=== PATIENT | male | born 1975 | race Caucasian/White ===

== ENCOUNTER 2020-12-18 05:07 | Emergency (ER) | payer MEDICAID ==
[~2020-12-18] VITALS: Ht 170.2 cm; Wt 74.4 kg
[2020-12-18] MEDS ORDERED: TYLENOL EXTRA500 MG ORAL (05:24)
[2020-12-18] MEDS ORDERED: MEDIPLAST CORN1 EACH TP (05:24)
--- NOTE | 2020-12-18 05:24 | Emergency Room Report ---
History of Present Illness General Chief Complaint: Lower Extremity Injury Source: Patient Present Illness HPI 45-year-old male with past medical history of chronic foot calluses presents emergency department with chronic foot pain. When asked how long his pain has been ongoing, he states "a long time". He denies any fever, calf swelling, shortness of breath, chest pain, hemoptysis, rash, nausea, vomiting, diarrhea or any other symptoms. Tetanus status is up-to-date. The patient's symptoms were gradual onset, severity was moderate, duration since a chronic number of years. Quality: Aching Past medical history: Hepatitis C, childhood hernia surgery Past surgical history: Right inguinal hernia Smoking: Occasional Alcohol use: Occasional Drug use: Denies Review of systems: CONST: No fevers or chills, No night sweats PULMONARY: No productive cough, No shortness of breath CARDIAC: No chest pain, No palpitations GI: No vomiting, No diarrhea , No melena_or_BRBPR : No dysuria, No hematuria, No discharge NEURO: No new_focal_weakness_or_numbness, No confusion, No vision changes 14 point Review of Systems is otherwise negative except per HPI Physical Exam: GENERAL: Awake_alert_ nontoxic, no acute distress Spo2 98% on RA -normal EYES: Extraocular muscles are intact. Conjunctivae clear. Lids without swelling ENT: External nose and ear normal_in_appearance. Oropharynx clear. Head_atraumatic, Moist_oral_mucosa NECK: No JVD. No meningismus. No thyromegaly. Supple. Trachea midline RESP: Normal respiratory effort. Symmetric rise. No stridor. Clear_to_auscultation_No_rales_No_wheezes CARDIAC: Regular rate and regular rhytm. No_significant pedal edema. Negative Homans' sign bilaterally ABDOMEN: Soft. Nondistended. Nontender_No_rebound_or_guarding. MSK: Normal muscle tone, without rigidity. Extremities without asymmetric deformity or swelling. Chronically callused plantar feet bilaterally. No ulceration. No cellulitis. Bunions bilaterally Full range of motion of bilateral ankles. No pain out of proportion. Joints have no warmth out of proportion. SKIN: Warm and dry. No visible cyanosis or pallor. No petechiae NEUROLOGIC: Alert, oriented x3. Motor_and_sensation_grossly_intact. No truncal ataxia. Gait_normal Psych: Normal mood and affect, normal judgment and insight - COORDINATION OF CARE Case was discussed with: Patient Medical Decision Making/Plan: Differential diagnosis: Chronic foot pain versus bunion versus callus versus plantar ulceration Patient is afebrile and well-appearing. He is able to bear weight on his plantar feet. He is noted to have noninfective chronic appearing calluses to the bilateral plantar feet. There is no swelling or redness. Negative Homans' sign bilaterally. These are likely chronic. Doubt cellulitis, abscess, necrotizing fasciitis, septic arthritis, gout or compartment syndrome. We have supplied lotion, emollient, and new socks. He was advised to wear proper footwear. He will see his primary care doctor for referral to podiatry. A [facility] consult was offered to the patient prior to discharge but the patient declined. All needs were met during this ED visit including food and water, change of clothes, detention referral/resources, and transportation. Pertinent results reviewed with the patient. I educated the patient on the current treatment plan including the risks, benefits, and alternatives. I also discussed the extent and limitations of the current evaluation. The patient expressed understanding and agreement with plan. I recommended PMD follow-up within 1-2 days. Also advised that the patient return to the Emergency Department as soon as possible if they experience any new, persistent, or worsening symptoms. Allergies: Coded Allergies: No Known Allergies (Unverified , 12/18/20) COVID-19 Screening Contact w/high risk pt: No Experienced COVID-19 symptoms?: No COVID-19 Testing performed RESEARCH INTERVIEWER: No Physical Exam Vital Signs Date Time Temp Pulse Resp B/P (MAP) Pulse Ox O2 Delivery O2 Flow Rate FiO2 12/18/20 05:13 97.7 94 16 118/76 (90) 100 Room Air Medical Decision Making Diagnostic Impression: Primary Impression: Callus of foot Last Vital Signs Date Time Temp Pulse Resp B/P (MAP) Pulse Ox O2 Delivery O2 Flow Rate FiO2 12/18/20 05:13 97.7 94 16 118/76 (90) 100 Room Air Disposition: HOME, SELF-CARE Admit Decision Time: 05:23 Condition: Stable Scripts Acetaminophen* (TYLENOL EXTRA STRENGTH*) 500 Mg Tablet 500 MG ORAL Q8H PRN for Prn Headache/Temp > 101, #30 TAB 0 Refills Prov: Hernandez,Lisseth D.O. 12/18/20 Salicylic Acid (MEDIPLAST [id number]) 1 Each Adh..patch 1 EACH TP BID for 7 Days, #14 PATCH Prov: Lisseth Hernandez D.O. 12/18/20 Patient Instructions: Corns and Calluses Additional Instructions: Instructions for patient/head of precision targeting: Follow up with your physician in 1-2 days for referral to card runner. Wear prop er footwear Follow-up with your doctor sooner if your condition requires a more timely clinical reevaluation. Return to the emergency department immediately if you feel that your condition is worsening or if you have any new or concerning symptoms. Review your discharge instructions and take any prescriptions given as instructed. [facility] PROVIDES FREE OR LOW-COST HEALTH SERVICES TO PEOPLE WHO CAN SHOW PROOF THAT THEY LIVE IN [facility]. TO FIND MORE CLINICS PARTNERED WITH THE [facility] TO PROVIDE SERVICE, PLEASE CALL . Lisseth Hernandez D.O. Dec 18, 2020 05:24
[2020-12-18] MEDS ORDERED: Neosporin Oint Ud Pkt TOPIC ONE (05:40)
[2020-12-18] MEDS ORDERED: Bacitracin Oint 15gm Tube TOPIC ONE (05:40)
[2020-12-18 05:41] VITALS: BP 130/89
--- NOTE | 2020-12-18 05:42 | NUR ---
Patient was discharge home as EDP ordered. All vital signs were taken within normal range. Patient . All prescriptions and instructions were given to the patient . Patient verbalized understanding. patient left the hospital in stable condition .
== END 2020-12-18 05:53 | disposition home or self-care (01) ==
LOC: EMR 05:40
DX: L84 Corns and callosities (principal); Z86.19 Personal history of other infectious and parasitic diseases
CPT/HCPCS: 99282